=== PATIENT | female | born 1945 | race Caucasian/White ===

== ENCOUNTER → 2020-12-28 | Outpatient (CLI) | payer OTHER | LOC: SJCVC 13:37 | PROVIDERS: ATTEND Internal Medicine | DX: R94.31 Abnormal electrocardiogram [ECG] [EKG] (principal); R06.00 Dyspnea, unspecified; R93.1 Abnormal findings on diagnostic imaging of heart and coronary circulation; E78.5 Hyperlipidemia, unspecified; I12.9 Hypertensive chronic kidney disease with stage 1 through stage 4 chronic kidney disease, or unspecified chronic kidney disease; N18.31 Chronic kidney disease, stage 3a; K21.9 Gastro-esophageal reflux disease without esophagitis; Z88.8 Allergy status to other drugs, medicaments and biological substances; Z79.899 Other long term (current) drug therapy; Z87.891 Personal history of nicotine dependence; Z82.49 Family history of ischemic heart disease and other diseases of the circulatory system ==

== ENCOUNTER → 2021-01-23 | Outpatient (CLI) | payer OTHER | LOC: SJCVCIMAG 07:49 | PROVIDERS: ATTEND Internal Medicine | DX: I08.3 Combined rheumatic disorders of mitral, aortic and tricuspid valves (principal); I49.1 Atrial premature depolarization; R06.00 Dyspnea, unspecified; R93.1 Abnormal findings on diagnostic imaging of heart and coronary circulation; I12.9 Hypertensive chronic kidney disease with stage 1 through stage 4 chronic kidney disease, or unspecified chronic kidney disease; N18.31 Chronic kidney disease, stage 3a; E78.5 Hyperlipidemia, unspecified; K21.9 Gastro-esophageal reflux disease without esophagitis; Z98.890 Other specified postprocedural states; Z88.8 Allergy status to other drugs, medicaments and biological substances; Z79.899 Other long term (current) drug therapy; Z87.891 Personal history of nicotine dependence; Z82.49 Family history of ischemic heart disease and other diseases of the circulatory system ==

== ENCOUNTER → 2021-02-22 | Outpatient (CLI) | payer OTHER ==
--- NOTE | ~2021-02-22 | PFR/MVV ---
[facility] [place] [address] PULMONARY FUNCTION MVV/REPORT Name: CROWEDUARDO Room #: [facility]#: [id number] Admission: 02/22/21 Attend Phys: Charles Carpio MD Discharge: Date of : 45 Report #: [id number] THIS REPORT FOR: //name// >> SPIROMETRY: (BTPS) Height: in cm Weight: lbs kg Exam Date: PRE-RX POST-RX PRED BEST %PRED BEST %PRED %CHG FVC LITERS . . . . . . FEV1 LITERS . . . . . . FEV1/FVC % . . . . . . JDP62-06% L/Sec . . . . . . PEF L/SEC . . . . . . FEF50/FIF50 UNITLESS . . . . . . MVV L/Min . . . f 1/Min . . . >> LUNG VOLUMES: (BTPS) PRE-RX POST-RX PRED AVG %PRED AVG %PRED %CHG VC Liters . . . . . . TLC Liters . . . . . . RV Liters . . . . . . RV/TLC % . . . . . . FRC PL Liters . . . . . . FRC N2 Liters . . . . . . ERV Liters . . . . . . IC Liters . . . . . . >> DIFFUSION: DLCO ml/Min/mmHg . . . . . . DL Beau ml/Min/mmHg . . . . . . DLCO/VA ml/Min/mmHg . . . . . . VA Liters . . . . . . COMMENTS: COMMENTS: >> RESISTANCE: [facility] [address] [place] [address] PULMONARY FUNCTION MVV/REPORT Name: EDUARDO MARIA Room #: REG [facility]#: [id number] Admission: 02/22/21 Attend Phys: Charles Carpio MD Discharge: Date of : 45 Report #: [id number] PRE-RX PRED AVG %PRED Raw Total cmH20/L/Sec . . . Raw Insp cmH20/L/Sec . . . Raw Exp cmH20/L/Sec . . . Raw cmH20/L/Sec . . . Gaw L/Sec/cmH20 . . . sRaw cmH20 Sec . . . sGaw l/cmH20 Sec . . . Vtq Liters . . . # = OUTSIDE 95% CONFIDENCE INTERVAL CALIBRATION: PRED: 3.00 ACTUAL: EXP 3.01 INSP 3.02 [facility] N-[id number] >> INTERPRETATION/IMPRESSION: DOC #: [id number] Sam Sue M.D. PHYSICIAN: Dr. Charles Caprio. SPIROMETRY: FEV1 is 2.22 liters (112%), FVC is 2.75 liters (98%), FEV1/FVC ratio is 81%. There is no significant response to bronchodilator therapy. Total lung capacity is 5.57 liters (112%). RV is 2.16 liters (105%). Diffusing capacity is 52%. IMPRESSION: Pulmonary function studies are consistent with normal pulmonary function with no significant response to bronchodilator therapy. There is no significant air trapping or hyperinflation. Diffusing capacity is moderately decreased. Sam BHATIA/JADEN By: Sam Sue MD /nt
== END ==
LOC: NUC 07:46
PROVIDERS: ATTEND Internal Medicine
DX: R06.00 Dyspnea, unspecified (principal)

== ENCOUNTER → 2021-03-08 | Outpatient (CLI) | payer OTHER ==
[~2021-03-08] MED LIST: ATORVASTATIN CA20 MG PO; BUPROPION XL300 MG PO; CHLORTHALIDONE25 MG PO; DULOXETINE HCL60 MG PO; EXCEDRIN CAPLE1 EACH PO; FAMOTIDINE 20 M20 MG PO; FORTEO750 MCG/3 SUBQ; HYDROCODONE-ACE15 ML PO; IRON325 M1 PO; POTASSIUM20 PO
== END ==
LOC: LAB 12:04
PROVIDERS: ATTEND Student in an Organized Health Care Education/Training Program
DX: Z01.812 Encounter for preprocedural laboratory examination (principal); Z20.822 Contact with and (suspected) exposure to COVID-19

== ENCOUNTER 2021-03-09 06:33 | Observation (INO) | payer OTHER ==
[~2021-03-09] VITALS: Ht 167.6 cm; Wt 61.2 kg
[~2021-03-09 06:33] MED LIST changes: -HYDROCODONE-ACE15 ML PO; -IRON325 M1 PO; -POTASSIUM20 PO
[2021-03-09 07:05] VITALS: BP 142/70
[2021-03-09 07:47] LABS: HEMATOCRIT 32.8 % (37.0-47.0); HEMOGLOBIN 10.6 gm/dL (12.0-15.0)
[2021-03-09 07:52] LABS: CREATININE 1.5 mg/dL (0.6-1.0); POTASSIUM 3.1 mmol/L (3.5-5.1)
[2021-03-09 08:00] LABS: ALBUMIN 3.9 g/dL (3.4-5.0); TOTAL BILIRUBIN 0.3 mg/dL (0.2-1.0); TOTAL PROTEIN 7.4 g/dL (6.4-8.2)
--- NOTE | 2021-03-09 14:30 | NUR ---
Pt transferred to unit from PACU. Dressings c/d/i. Pain controlled with prn pain meds. IVF infusing. Family at bedside. Tolerates clear liquids well. Not to be advanced. No carbonated beverages. Family at bedside. Call light within reach. Will continue to monitor.
[2021-03-09 14:55] VITALS: BP 147/81
[2021-03-09 21:00] VITALS: BP 138/76
--- NOTE | 2021-03-10 04:00 | NUR ---
ALERT AND ORIENTED.S/P PARA ESOPHAGEAL HIATAL HERNIA REPAIR WITH MESH. LAP SITES X 5 WITH BANDAID LOOK OKAY. AFEBRILE. WALKS TO THE BATHROOM, VOIDING OKAY. PAIN MANAGED WITH LIQUID MORPHINE AND IV MORPHINE. TOLERATING CLR LIQUID DIET.
[2021-03-10 05:30] LABS: HEMATOCRIT 28.4 % (37.0-47.0); HEMOGLOBIN 9.4 gm/dL (12.0-15.0); MCH 28.8 pg (26.0-34.0); MCHC 33.1 g/dL (28.0-37.0); RBC 3.27 mil/uL (4.20-5.00); RDW 15.1 % (10.5-14.5); WBC 8.7 thou/uL (4.0-11.0)
[2021-03-10 06:12] LABS: POTASSIUM 4.6 mmol/L (3.5-5.1)
[2021-03-10 08:34] VITALS: BP 101/63
--- NOTE | 2021-03-10 10:17 | O ---
[facility] [place] [address] OPERATIVE REPORT Name: EDUARDO MARIA Room #: 444-P ADM IN M.R.#: [id number] Admission: 03/09/21 Attend Phys: Wilbur Serrano MD Discharge: Date of : 45 Report #: [id number] THIS REPORT FOR: cc: Charles Carpio MD,Wilbur Ledbetter MD, MD ~ DOC #: [id number] cc: MD Wilbur Goldsmith MD PREOPERATIVE DIAGNOSIS: Paraesophageal hiatal hernia. POSTOPERATIVE DIAGNOSIS: Paraesophageal hiatal hernia. PROCEDURES PERFORMED: Laparoscopic repair of paraesophageal hiatal hernia, placement of reinforcement mesh ([place] Enform), Rick fundoplication. SURGEON: Wilbur Serrano MD ANESTHESIA: General. COMPLICATIONS: None. ESTIMATED BLOOD LOSS: 5 mL. DESCRIPTION OF PROCEDURE: With the patient under general anesthesia, IV antibiotic was administered. The patient was placed in low lithotomy position with a beanbag. The timeout was performed. The abdomen was prepped and draped in sterile fashion. 0.25% Marcaine was used to anesthetize the skin down 2 inches above the umbilicus. Fascia was identified. The midline fascia was opened under visualization between clamps. 0 Vicryl sutures were placed on the fascial edges for retraction. A Veress needle was then placed through the peritoneum. Abdominal cavity was insufflated with CO2. Pneumoperitoneum was established without difficulty. After creating pneumoperitoneum, an 11 mm trocar was placed under visualization into the peritoneal cavity. A 5 mm trocar was placed in the right upper quadrant, 5 mm trocar was placed in the left epigastrium, 5 mm trocar was placed in the left upper quadrant midclavicular line and then 11 mm trocar was placed to the left upper quadrant midclavicular line, 5 mm trocar was placed in the left upper quadrant at the anterior axillary line. Liver retractor was placed. This was held with the retracting device. The left lobe of the liver was lifted anteriorly. Paraesophageal hiatal hernia was identified. Proximally, the upper third of the stomach was in the hernia. Ligaments between the stomach and the liver were dissected free. This was then taken to the right crura of the diaphragm. There was some herniated fat that was medial to the GE junction that stuck up in the chest. At [address] [address] OPERATIVE REPORT Name: EDUARDO MARIA Room #: 444-P ADM IN M.R.#: [id number] Admission: 03/09/21 Attend Phys: Wilbur Serrano MD Discharge: Date of : 45 Report #: [id number] position, the peritoneum was dissected free. The hernia sac was then dissected out of the mediastinum without difficulty. The course of the right crura was completely freed. The hernia sac was completely reduced. Dissection was then carried out at the gastrocolic ligament, getting into the lesser sac, freeing the short gastric and short gastric was then divided with Harmonic scalpel. Harmonic scalpel was used for the dissection described above. The left crura of the diaphragm was then isolated. Excess hernia sac was then freed from the stomach. A 50-Amharic bougie was placed without difficulty. The diaphragmatic defect was closed with 0 silk suture using pledgets. Three separate sutures were used. This was placed with a sizer and the repair was loose around the dilator. The diaphragm edges actually were fairly decent and came together pretty easily. A 10 x 10 cm [place] Enform mesh was used. This was a soft material. This was moistened and then trimmed to fit and then placed in the abdominal cavity. This was placed over the diaphragmatic repair and U shape was cut out of it to go around the right and left side of the GE junction. The esophagus was dissected free in the mediastinum. I could see the left pleura was open. I did not see any gaps in the right pleura. The esophagus was not harmed. The loose tissue surrounding the esophagus was free. The esophagus came down easily and the GE junction was about 5 cm below the diaphragmatic crura. The mesh was sutured with 2-0 [place]-Aakash suture, laparoscopic intracorporeal knot tying was performed. After the hiatal hernia was repaired, a Rick fundoplication was performed. The posterior fundus was brought behind the GE junction. A 0 silk suture was placed on the gastric wall. This allowed the stomach to be pulled through. An anterior part of the fundus was then sewn to this. A 360-degree wrap was performed. During the sizing of the wrap, the dilator was passed down again. The two separate sutures were placed for the fundoplication. This was using 0 silk suture. Again, pledgets were used. The diaphragmatic abraham was also closed with 0 silk suture with pledgets in the above section. Once there was enough room under the wrap, when the dilator was removed, the wrap was formed without any tension. There was essentially no bleeding during the procedure. Valsalva was performed to get the air out of the chest as I was releasing the intra-abdominal air. We will be doing a chest x-ray since the pleura was entered on the left. The fascial defect above the umbilicus was closed with 0 Vicryl x2. Skin was irrigated. Skin was closed with 5-0 PDS. Dermabond and Band-Aid was applied. The patient was awakened. Neal catheter was removed. She was taken to recovery room, tolerated the procedure well. Wilbur Serrano MD PYC/NEFTALI/IRASEMA [address] [place] [address] OPERATIVE REPORT Name: EDUARDO MARIA Room #: 444-P [facility] IN .R.#: [id number] Admission: 03/09/21 Attend Phys: Wilbur Serrano MD Discharge: Date of : 45 Report #: [id number] <ELECTRONICALLY SIGNED> By: Wilbur Serrano MD 03/10/21 1017 30 2109 Wilbur Serrano MD /nt
--- NOTE | 2021-03-10 12:34 | NUR ---
ASSESSMENT: CM REVIEWED CHART AND SPOKE WITH PATIENT AT THE BEDSIDE. PT IS ALERT AND ORIENTED X4. PT IS S/P LAP HERNIA REPAIR. PT REPORTS LIVING IN A CONDO ALONE. PT REPORTS HAVING NO STEPS SHE HAS TO USE. PT REPORTS AMBULATING WITH A WALKER AND HAS A GRAB BAR IN THE SHOWER. PT REPORTS BEING INDEPENDENT WITH ADLS. PT STATES HER SON AND DAUGHTER LIVE IN TOWN AND ARE SUPPORTIVE. PT REPORTS SHE HAS [facility] IN [facility] AND HAD HH BUT UNSURE THE HH AGENCY. CM DISCUSSED ROLE AND PT DOES NOT ANTICIPATE HAVING ANY NEEDS FROM CM PRIOR TO DISCHARGE. ANTICIPATE DISCHARGE HOME WITH NO NEEDS.
[2021-03-10] MEDS ORDERED: HYDROCODONE-ACE15 ML PO (12:57)
[2021-03-10] MEDS ORDERED: POTASSIUM20 PO (12:58)
[2021-03-10] MEDS ORDERED: IRON325 M1 PO (12:59)
[2021-03-10 14:48] VITALS: BP 101/63
--- NOTE | 2021-03-10 15:15 | NUR ---
ASSUMED PT CARE AROUND 0720. PT ALERT X ORIENTED X 4. ON ROOM AIR. FALL PRECAUTION IN PLACE. WILL CALL APPROPRIATELI. SATAND BY ASST. IV LEFT HAND AND RIGHT HAND. NO EDEMA GOOD PULSES. ON CLEAR LIQUID DIET. 5 LAP SITES ON THE ABDOMEN. PT GETTING DISCHARGED TO HOME.
--- NOTE | 2021-03-14 13:13 | PATH ---
[facility] [address] [place] [address] PATHOLOGY RPT PROCEDURE Name: VERONICA FLORENCE Room #: 444-P TASHA Montelongo#: [id number] Admission: 03/09/21 Date of : 45 Discharge: 03/10/21 Report #: [id number] Path Case #: [id number] [facility] Accession Number: [id number] . 01 Material submitted: . PARAESOPHAGEAL - PARAESOPHAGEAL HERNIAL SAC . 01 Clinician provided ICD-10: K44.9 . 01 Clinical history: . LAPAROSCOPIC PARAESOPHAGEAL HERNIA PARAESOPHAGEAL HIATAL HERNIA LAP HERNIA REPAIR,[id number] . 02 Diagnosis: Paraesophageal hernia sac, repair: - Fragments of congested fibroadipose and fibrovascular connective tissue along with abundant reactive lymph nodes (6). (IUV:pit; 03/13/2021) QTP 03/13/2021 1756 Local . 02 Electronically signed: . Chantale Kurtz MD, Pathologist NPI- [id number] . 01 Gross description: . Received in formalin labeled "Veronica Florence, periesophageal hernia sac" is an irregular, mliler-pink to miller-yellow portion of membranous soft tissue measuring 4.6 x 1.9 x 1.2 cm. Specimen is serially sectioned to reveal lobular, miller-yellow cut surface. Cement Cutter sections of the specimen are submitted in cassette A1.([facility]; 03/12/2021) GZA/GZA 03/12/2021 1116 Local . 02 Pathologist provided ICD-10: K44.9 . 02 CPT . 569062 Specimen Comment: A courtesy copy of this report has been sent to [phone] Specimen Comment: [id number] Specimen Comment: Report sent to / DR SALGADO Performed at: [address], [place] [id number] MD Franky Oreilly MD Phone: [phone] [facility] [address] [place] [address] PATHOLOGY RPT PROCEDURE Name: VERONICA FLORENCE Room #: 444-P [facility] M.R.#: [id number] Admission: 03/09/21 Date of : 45 Discharge: 03/10/21 Report #: [id number] Path Case #: [id number] Performed at: [address] [id number] MD Chantale [place]z MD Phone: [phone]
== END 2021-03-10 15:10 | disposition home or self-care (01) ==
LOC: OR → TBA 06:37 → OR 08:53 → 4S 11:59 → TBA 11:59 → OR 12:45 → 4S 13:51 → OR 03-10 09:01 → 4S 03-10 15:10 → OR 03-10 15:48
PROVIDERS: ADMIT Surgery; ATTEND Surgery
DX: K44.9 Diaphragmatic hernia without obstruction or gangrene (principal); I10 Essential (primary) hypertension; E78.5 Hyperlipidemia, unspecified; Z87.891 Personal history of nicotine dependence; Z79.899 Other long term (current) drug therapy
CPT/HCPCS: 10102; 50010; 50101; 50411; 50455; 50555; 50886; 51436; 51474; 51489; 52182; 52265; 53307; 53310; 53335; 54022; 54118; 56462; 56524; 56525; 56526; 56528; 56530; 58574; 62110; 62900; 70005

== ENCOUNTER 2021-04-01 01:24 | Emergency (ER) | payer OTHER ==
[~2021-04-01] VITALS: Ht 160 cm; Wt 68.0 kg
[~2021-04-01 01:24] MED LIST changes: +HYDROCODONE-ACE15 ML PO; +IRON325 M1 PO; +POTASSIUM20 PO
[2021-04-01 02:09] LABS: URINE BILIRUBIN NEGATIVE (Negative); URINE BLOOD TRACE (Negative); URINE CLARITY CLEAR; URINE COLOR YELLOW; URINE GLUCOSE-RANDOM* NEGATIVE (Negative); URINE KETONES NEGATIVE (Negative); URINE LEUKOCYTES-REFLEX NEGATIVE (Negative); URINE NITRITE-REFLEX NEGATIVE (Negative); URINE PROTEIN (DIPSTICK) NEGATIVE (Negative); URINE SPECIFIC GRAVITY 1.015 (1.005-1.035); URINE UROBILINOGEN 0.2 E.U./dl (0.2-1.0)
[2021-04-01 02:11] LABS: ABSOLUTE NEUTROPHILS 8.7 thou/uL (1.4-8.2); EOSINOPHILS 5.3 % (0.0-3.0); HEMATOCRIT 33.2 % (37.0-47.0); HEMOGLOBIN 10.7 gm/dL (12.0-15.0); LYMPHOCYTES 16.2 % (24.0-44.0); MCH 28.2 pg (26.0-34.0); MCHC 32.3 g/dL (28.0-37.0); MCV 87.1 fL (80.0-100.0); MONOCYTES 7.3 % (1.0-8.0); PLATELET COUNT 566 thou/uL (150-400); POLYS 70.2 % (36.0-66.0); RBC 3.82 mil/uL (4.20-5.00); RDW 15.7 % (10.5-14.5); WBC 12.4 thou/uL (4.0-11.0)
[2021-04-01 02:18] LABS: CREATININE 1.4 mg/dL (0.6-1.0); POTASSIUM 3.3 mmol/L (3.5-5.1)
[2021-04-01 02:24] LABS: TOTAL BILIRUBIN 0.3 mg/dL (0.2-1.0); TOTAL PROTEIN 7.5 g/dL (6.4-8.2)
[2021-04-01] MEDS ORDERED: ZOFRAN ODT4 MG PO (05:05)
[2021-04-01 05:07] VITALS: BP 140/67
== END 2021-04-01 05:20 | disposition home or self-care (01) ==
LOC: ER 01:24
PROVIDERS: Emergency Medicine
DX: K52.9 Noninfective gastroenteritis and colitis, unspecified (principal); R10.9 Unspecified abdominal pain; I12.9 Hypertensive chronic kidney disease with stage 1 through stage 4 chronic kidney disease, or unspecified chronic kidney disease; N18.9 Chronic kidney disease, unspecified; K21.9 Gastro-esophageal reflux disease without esophagitis; Z88.1 Allergy status to other antibiotic agents; Z85.828 Personal history of other malignant neoplasm of skin

== ENCOUNTER → 2021-04-06 | Outpatient (CLI) | payer OTHER ==
[~2021-04-06] MED LIST changes: +HYDROCODON-ACE1 EAC7 PO; +K-TAB ER20 MEQ PO; +ZOFRAN ODT4 MG PO
== END ==
LOC: ULTRA 11:39
PROVIDERS: ATTEND Surgery
DX: K76.89 Other specified diseases of liver (principal); K83.8 Other specified diseases of biliary tract; R10.11 Right upper quadrant pain

== ENCOUNTER → 2021-04-07 | Day surgery (SDC) | payer OTHER ==
[~2021-04-07] VITALS: Ht 167.6 cm; Wt 62.6 kg
[2021-04-07 12:34] VITALS: BP 115/57
[2021-04-07 12:37] LABS: CALCIUM 8.8 mg/dL (8.5-10.1); CREATININE 1.5 mg/dL (0.6-1.0); POTASSIUM 3.7 mmol/L (3.5-5.1)
[2021-04-07 12:43] LABS: ALBUMIN 3.8 g/dL (3.4-5.0); TOTAL BILIRUBIN 0.3 mg/dL (0.2-1.0); TOTAL PROTEIN 7.1 g/dL (6.4-8.2)
[2021-04-07 14:51] VITALS: BP 115/57
--- NOTE | 2021-04-11 14:06 | O ---
[facility] [place] [address] OPERATIVE REPORT Name: EDUARDO MARIA Room #: REG [facility]#: [id number] Admission: 04/07/21 Attend Phys: Wilbur Serrano MD Discharge: Date of : 45 Report #: [id number] THIS REPORT FOR: cc: Charles Carpio MD, Christopher B. MD Chu, Peter Y. MD ~ DOC #: [id number] cc: MD Wilbur Goldsmith MD DATE OF SERVICE: 04/07/2021 PREOPERATIVE DIAGNOSIS: Incarcerated right femoral hernia. POSTOPERATIVE DIAGNOSIS: Incarcerated right femoral hernia with inflammation and free fluid. PROCEDURE PERFORMED: Laparoscopic properitoneal repair of incarcerated femoral hernia with mesh. ANESTHESIA: General. SURGEON: Wilbur Serrano MD COMPLICATIONS: None. ESTIMATED BLOOD LOSS: 5 mL DESCRIPTION OF PROCEDURE: With the patient under general anesthesia, Neal catheter was placed. IV antibiotic was administered. Timeout was performed. 0.25% Marcaine was used to anesthetize the skin adjacent to the umbilicus on the right side. A small 2 cm incision was made adjacent to the umbilicus. The fascia was identified. The fascia was opened transversely. The muscle was spread with hemostat. The muscle and the posterior fascia were bluntly with finger. A balloon trocar was placed through the space. Insufflation was performed with CO2. A 5 mm trocar was placed about 2 inches below the umbilicus and properitoneal space was opened up. Inferior epigastric vessel on the right was identified. The round ligament was identified, seen going into the internal ring, no indirect hernia sac. A second 5 mm trocar was placed lateral to the internal ring in the wall. The patient had an obvious femoral hernia that was easily seen. There is fatty tissue within the hernia, possibly a peritoneal sac posteriorly. The fat was dissected and was able to be pulled out of the internal ring. There was free fluid once I pulled this fat out and this is likely free fluid. I do not think it was in the sac. This then confirms the ultrasound finding with fluid in this lump of fat going into it. The ring of the femoral hernia was identified. The fascia defect was seen. [address] [address] OPERATIVE REPORT Name: EDUARDO MARIA Room #: REG [facility] M.R.#: [id number] Admission: 04/07/21 Attend Phys: Wilbur Serrano MD Discharge: Date of : 45 Report #: [id number] Nothing else was in it. The dissection was carried freeing the properitoneal space rest of the way. A large right-sided 3DMax lightweight mesh was placed. This was placed through an 11 mm trocar over the properitoneal space. This covered the pubic bone across the midline. This also covered the internal ring well. I did divide the round ligament, so there is nothing else going into the internal ring. The mesh was tacked laterally with SorbaFix. The mesh was tacked superomedially with SorbaFix over the Félix's ligament; and superomedially, the mesh was tacked to the rectus muscle. The mesh seated well. The femoral hernia was covered well. CO2 was evacuated, trocars were removed. Fascial defect adjacent to the umbilicus was closed with [id number] 0 Vicryl x2. Skin was irrigated. The skin was then closed with 5-0 PDS in subcuticular fashion. Steri-Strip, Band-Aids applied. The patient tolerated the procedure well. Wilbur Serrano MD PYC/VIS <ELECTRONICALLY SIGNED> By: Wilbur Serrano MD 04/11/21 1406 1356 1500 Wilbur Serrano MD /nt
== END | disposition home or self-care (01) ==
LOC: OR 11:32
PROVIDERS: ATTEND Surgery
DX: K41.30 Unilateral femoral hernia, with obstruction, without gangrene, not specified as recurrent (principal); I12.9 Hypertensive chronic kidney disease with stage 1 through stage 4 chronic kidney disease, or unspecified chronic kidney disease; N18.9 Chronic kidney disease, unspecified; E78.00 Pure hypercholesterolemia, unspecified; F32.9 Major depressive disorder, single episode, unspecified; F41.9 Anxiety disorder, unspecified; K21.9 Gastro-esophageal reflux disease without esophagitis; M81.0 Age-related osteoporosis without current pathological fracture; Z98.890 Other specified postprocedural states; Z79.899 Other long term (current) drug therapy; Z87.891 Personal history of nicotine dependence; Z85.828 Personal history of other malignant neoplasm of skin; Z96.641 Presence of right artificial hip joint; Z96.652 Presence of left artificial knee joint; Z90.710 Acquired absence of both cervix and uterus
CPT/HCPCS: 50010; 50101; 50411; 50507; 50555; 50848; 52265; 53065; 53307; 56525; 56526; 58574; 62110; 62900; 70005

== ENCOUNTER 2021-04-29 09:31 | Inpatient (IN) | payer OTHER ==
[~2021-04-29] VITALS: Ht 167.6 cm; Wt 61.2 kg
--- NOTE | ~2021-04-29 | EMS ---
[address] [address] EMS Patient Care Report Name: EDUARDO MARIA Room #: 170-2 ADM IN M.R.#: [id number] Admission: 04/29/21 Attend Phys: Wilbur Serrano MD Discharge: Date of : 45 Report #: [id number] THIS REPORT FOR: //name// Report Transmitted: 04/29/2021 13:26 EMS Care Summary [facility] MED-ACT Incident [id number] @ 04/29/2021 09:04 Incident Location [id number] [place] [address] Patient EDUARDO MARIA Female, 75 Years 1945 Patient Address [address] [place] [address] Patient History Hypertension (HTN),Hyperlipidemia,Gastro-Esophageal Reflux Disease (GERD), Patient Allergies Tetracycline, Patient Medications Hydrochlorothiazide (Hctz), Duloxetine, Famotidine, Bupropion, Chlorthalidone, Chief Complaint Abdominal Pain Disposition Transported No Lights/[place] Dispatch Reason Abdominal Pain/Problems Transported To [facility] Narrative [id number] found the pt sitting on the side of her bed in no apparent distress, putting on a shirt. The pt stated that she has been having abdominal pain [address] [address] EMS Patient Care Report Name: EDUARDO MARIA Room #: 170-2 ADM IN [facility].#: [id number] Admission: 04/29/21 Attend Phys: Wilbur Serrano MD Discharge: Date of : 45 Report #: [id number] since around 00:00 this morning. She stated that her pain has just gotten progressively worse this morning and now wants to go to the ED for evaluation. The pt stated that she went to the hospital last Saturday for a similar incident and was told she had gastritis. The pt has a follow up appointment with her primary care doctor in a couple of days. The pt stated that she just has never been this sick before. She stated that her abdomen just feels like a constant pressure all over her abdomen. The pt stated that she has been nauseous and had some diarrhea. The pt denies any chest pain, shortness of breath, headaches, blurred vision, or recent trauma. The pt was transported in a position of comfort. The pt stated that hopefully they will do some "more digging" and find out what is wrong with her. The pt has no new complaints en route and with hand off to [place] ED RN. The pt was transferred to ED room 1 via a sheet drag from EMS cot to ED bed. Initial Vitals @09:24P: 91,R: 14,BP: 117/72,SpO2: 99, @09:12P: 100,R: 14,BP: 147/98,Pain: 2/10,GCS: 15,Temp: 98F,SpO2: 98,Revised Trauma: 12, Assessments @09:11MENTAL:Person Oriented,Time Oriented,Place Oriented,Event Oriented,SKIN:HEENT:Head/Face: No Abnormalities,Eyes: No Abnormalities,Neck/Airway: No Abnormalities,LUNG SOUNDS:General: Diarrhea,Left Upper: Tenderness,Right Upper: Tenderness,Left Lower: Tenderness,Right Lower: Tenderness,ABDOMEN:General: Diarrhea,Left Upper: Tenderness,Right Upper: Tenderness,Left Lower: Tenderness,Right Lower: Tenderness,PELVIS//GI:No Abnormalities,EXTREMITIES:Left Arm: No Abnormalities,Right Arm: No Abnormalities,Left Leg: No Abnormalities,Right Leg: No Abnormalities,PULSE:Radial: 2+ Normal,NEURO:No Abnormalities, Impression Abdominal Pain Procedures @09:11ALS AssessmentResponse: UnchangedSucceeded@09:11Surgical Mask on PatientResponse: Unchanged Timeline 09:02,Call Received 09:02,Psap Call 09:04,Dispatched 09:04,En Route 09:08,On Scene 09:10,At Patient 09:11,ALS Assessment,Response: UnchangedSucceeded, [place] [address] EMS Patient Care Report Name: EDUARDO MARIA Room #: 170-2 ADM IN M.R.#: [id number] Admission: 04/29/21 Attend Phys: Wilbur Serrano MD Discharge: Date of : 45 Report #: [id number] 09:11,Surgical Mask on Patient,Response: Unchanged 09:12,BP: 147/98 M,PULSE: 100,RR: 14 R,SPO2: 98 Ox,ETCO2: ,BG: ,PAIN: 2,GCS: 15, 09:16,Depart Scene 09:24,BP: 117/72 M,PULSE: 91,RR: 14 R,SPO2: 99 Ox,ETCO2: ,BG: ,PAIN: ,GCS: , 09:28,At Destination 09:40,Call Closed Disclaimer v1.1 Copyright 2020 [employer] This EMS Care Summary contains data elements from the applicable legal record (which may be displayed differently). It is designed to provide pertinent information for the following purposes: continuity of care, clinical quality, and state data reporting. The complete legal record is available to ED staff and administrators of the receiving hospital in [employer]'s Patient Tracker. All data is provided "as is."
[2021-04-29 09:33] VITALS: BP 143/60
[2021-04-29 09:52] LABS: ABSOLUTE NEUTROPHILS 13.4 thou/uL (1.4-8.2); BASOPHILS 0.5 % (0.0-2.0); EOSINOPHILS 0.1 % (0.0-3.0); HEMATOCRIT 37.8 % (37.0-47.0); HEMOGLOBIN 12.6 gm/dL (12.0-15.0); LYMPHOCYTES 8.1 % (24.0-44.0); MCHC 33.4 g/dL (28.0-37.0); MCV 86.6 fL (80.0-100.0); MONOCYTES 2.4 % (1.0-8.0); PLATELET COUNT 500 thou/uL (150-400); POLYS 88.9 % (36.0-66.0); RBC 4.36 mil/uL (4.20-5.00); RDW 16.3 % (10.5-14.5)
[2021-04-29 10:01] LABS: CALCIUM 9.9 mg/dL (8.5-10.1); CREATININE 2.1 mg/dL (0.6-1.0); POTASSIUM 3.6 mmol/L (3.5-5.1)
[2021-04-29 10:07] LABS: ALBUMIN 4.7 g/dL (3.4-5.0); TOTAL BILIRUBIN 0.4 mg/dL (0.2-1.0); TOTAL PROTEIN 8.4 g/dL (6.4-8.2)
[2021-04-29 14:29] VITALS: BP 175/82
[2021-04-29 14:55] VITALS: BP 137/69
--- NOTE | 2021-04-29 16:42 | NUR ---
ASSUMED PT CARE UPON ADMISSION TO UNIT AROUND 1455. PATIENT IS A&OX4 AND ABLE TO MAKE NEEDS KNOWN. IV PATENT, FLUIDS INFUSING. PATIENT REMAINS CONTINENT, UP TO BEDSIDE COMMODE WITH STANDBY ASSIST. PATIENT HAS AN NG TUBE TO THE RIGHT NARE HOOKED UP TO LOW INTERMITTENT SUCTIONS DRAINING LIGHT GREEN DRAINAGE. PATIENT ON 2 LITERS OXYGEN VIA NC. FALL PRECAUTIONS ARE IN PLACE, CALL LIGHT WITHIN REACH.
[2021-04-29 20:00] VITALS: BP 140/94
[2021-04-29 20:09] VITALS: BP 140/94
--- NOTE | 2021-04-29 21:21 | NUR ---
REPORT TO MICHELLE GUADALUPE, FROM 4S . PT TRANSFERRED TO ROOM 439 VIA BED ALL BELONGINGS WITH.
--- NOTE | 2021-04-29 21:24 | NUR ---
TRANSFERRED TO UNIT AT APPROXIMATELY 2114. PT IS A/O X4 AND IS ON 2 LITERS O2 NC. VSS. AFEBRILE. C/O NAUSEA AND PAIN TO ABDOMEN. PRN PAIN AND NAUSEA MEDICATION GIVEN DIRECTED. NG TUBE REMAINS IN PLACED AND HOOKED UP TO INTERMITTENT SUCTION. AT THIS TIME PT IS LYING WITH HOB ELEVATED. WITH COLD WET WASH CLOTH ON HER FOREHEAD WITH EYES CLOSED. FALL PRECAUTIONS IN PLACE, CALL LIGHT IS WITHIN REACH. WILL CONTINUE TO MONITOR.
[2021-04-30 06:02] LABS: BASOPHILS 0.5 % (0.0-2.0); EOSINOPHILS 0.1 % (0.0-3.0); HEMATOCRIT 40.2 % (37.0-47.0); HEMOGLOBIN 12.8 gm/dL (12.0-15.0); LYMPHOCYTES 9.3 % (24.0-44.0); MCH 28.5 pg (26.0-34.0); MCHC 31.9 g/dL (28.0-37.0); MCV 89.3 fL (80.0-100.0); MONOCYTES 12.8 % (1.0-8.0); PLATELET COUNT 549 thou/uL (150-400); POLYS 77.3 % (36.0-66.0); RDW 16.5 % (10.5-14.5); WBC 5.2 thou/uL (4.0-11.0)
[2021-04-30 06:30] LABS: ALBUMIN 3.5 g/dL (3.4-5.0); CREATININE 1.6 mg/dL (0.6-1.0); POTASSIUM 4.2 mmol/L (3.5-5.1); TOTAL BILIRUBIN 0.3 mg/dL (0.2-1.0); TOTAL PROTEIN 6.9 g/dL (6.4-8.2)
[2021-04-30 06:36] LABS: CALCIUM 7.6 mg/dL (8.5-10.1)
[2021-04-30 07:52] VITALS: BP 144/73
--- NOTE | 2021-04-30 09:42 | NUR ---
Assumed care of pt at 0700. Pt a&ox4. Bowel sounds absent in am. NG tube in place to low intermittent suction. Abd pain controlled with prn pain meds. Pt awaiting to see surgeon today and find out the plan. Call light within reach. Fall precautions in place. Will continue to monitor.
--- NOTE | 2021-04-30 10:31 | EKG ---
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
[2021-04-30 16:16] VITALS: BP 117/59
[2021-04-30 16:48] VITALS: BP 112/56
[2021-04-30 20:37] VITALS: BP 128/68
--- NOTE | 2021-05-01 01:31 | NUR ---
PT IS A/O X4 AND IS UP WITH ASSISTANCE. BEDREST FOLLOWING PROCEDURE WITH GAGNON IN PLACE DRAINING LIGHT YELLOW URINE. PT DENIES C/O PAIN OR DISCOMFORT. VSS AFEBRILE. NO BM THIS SHIFT. DRSG REMAINS C/D/I.NG TUBE REMAINS IN PLACE AND CONNECTED TO INTERMITTENT SUCTION. FALL PRECAUTIONS IN PLACE, CALL LIGHT IS WITHIN REACH. PT CALLS OUT APPROPRIATELY. WILL CONTINUE TO MONITOR.
[2021-05-01 03:09] VITALS: BP 89/51
[2021-05-01 05:27] LABS: HEMATOCRIT 31.6 % (37.0-47.0); MCHC 32.5 g/dL (28.0-37.0); MCV 89.3 fL (80.0-100.0); RBC 3.54 mil/uL (4.20-5.00); RDW 16.7 % (10.5-14.5); WBC 5.7 thou/uL (4.0-11.0)
[2021-05-01 05:28] LABS: HEMOGLOBIN 10.3 gm/dL (12.0-15.0)
[2021-05-01 05:47] LABS: ALBUMIN 2.1 g/dL (3.4-5.0); CALCIUM 7.2 mg/dL (8.5-10.1); POTASSIUM 4.6 mmol/L (3.5-5.1); TOTAL BILIRUBIN 0.3 mg/dL (0.2-1.0); TOTAL PROTEIN 5.1 g/dL (6.4-8.2)
[2021-05-01 05:50] LABS: CREATININE 2.7 mg/dL (0.6-1.0)
[2021-05-01 06:47] VITALS: BP 99/50
[2021-05-01 07:10] VITALS: BP 92/51
--- NOTE | 2021-05-01 09:31 | NUR ---
Assumed care of pt at 0700. Pt has some confusion this am. Cretinine 2.7, BUN 54. Pt pulled IV overnight. New IV insterted. Provider notified about pt's status. Nephrology and hospital doctor are consulted. Fluid bolus infusing. Dressing c/d/i. Talked to pt's family over the phone and updated on pt's status. Fall precautions in place. Will continue to monitor.
--- NOTE | 2021-05-01 09:43 | NUR ---
ASSESSMENT: CM REVIEWED CHART AND MET WITH PATIENT AT THE BEDSIDE. PT APPEARS TO BE ALERT AND ORIENTED X4. PT IS S/P EX LAP RELEASE OF INTERNAL HERNIA AND SB RESECTION. PT CURRENTLY HAS IN AN NG. PT REPORTS SHE LIVES AT HOME ALONE IN A CONDO. PT HAS NO STEPS TO ENTER THE CONDO OR ONCE INSIDE. PT REPORTS SHE HAS A WALKER AT HOME TO ASSIST WITH AMBULATION AND ALSO HAS A GRAB BAR IN THE SHOWER. PT REPORTS THAT SHE HAD HH IN THE PAST AFTER A HIP SURGERY BUT IS UNSURE THE AGENCY. PT DENIES HAVING A POST ACUTE CARE STAY. CM DISCUSSED ROLE. PT IS HOPEFUL SHE WILL PROGRESS AND HAVE NO NEEDS. PT DOES NOT FEEL SHE WILL LIKELY NEED HH. CM WILL CONTINUE TO FOLLOW TO ASSIST NEEDED.
--- NOTE | 2021-05-01 10:05 | EKG ---
[address] [employer] 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
--- NOTE | 2021-05-01 10:28 | O ---
[facility] [place] [address] [place] [address] OPERATIVE REPORT Name: EDUARDO MARIA Room #: 439-P ADM IN M.R.#: [id number] Admission: 04/29/21 Attend Phys: Wilbur Serrano MD Discharge: Date of : 45 Report #: [id number] THIS REPORT FOR: cc: Charles Carpio MD,Charles Serrano,Wilbur Palacios MD ~ cc: Arvind Carpio MD DATE OF SERVICE: 04/30/2021 PREOPERATIVE DIAGNOSIS: Small bowel obstruction with tender abdomen. POSTOPERATIVE DIAGNOSES: Small bowel obstruction with small bowel ischemia requiring resection, internal hernia secondary to small bowel adhesion to the left infundibulopelvic ligament, status post hysterectomy. SURGEON: Wilbur Serrano MD ANESTHESIA: General anesthesia. PROCEDURES PERFORMED: Diagnostic laparoscopy converted to exploratory laparotomy with release of internal hernia, lysis of adhesions and small bowel resection. COMPLICATIONS: None. ESTIMATED BLOOD LOSS: 30 mL. DESCRIPTION OF PROCEDURE: With the patient under general anesthesia, timeout was performed. Laparoscopic evaluation was performed to see if this bowel obstruction can be resolved with laparoscopic surgery. Time out was performed. The 0.25% Marcaine was used to anesthetize the skin. A supraumbilical incision was made. Fascia was opened in the midline after grasped with hemostat. 0 Vicryl suture placed on the fascial edges. Veress needle was then placed through peritoneum. Abdominal cavity was insufflated with CO2. An 11 mm trocar was placed under visualization into the pneumoperitoneum. Small bowel was markedly distended and occupying much of the space. The patient was placed in the Trendelenburg position. Two 5 mm trocars placed in the lateral abdomen, slightly above the umbilicus; one on the left side and one on the right side. There was a fair amount of fluid over the liver. This was suctioned out. It contained mild bloody serosanguineous fluid. Small bowel was evaluated. The small bowel was bruised appearing and the bowel that was in the loop that is deeper appeared more dusky. The bowel does appear to be caught by adhesions and internal hernia. During the manipulation of the small bowel that was dusky appearance, the bowel tore. Small bowel content came out. The laparoscopic surgery was terminated and the lower midline incision was made. Skin incision [address] [address] OPERATIVE REPORT Name: EDUARDO MARIA Room #: 439-P ADM IN M.R.#: [id number] Admission: 04/29/21 Attend Phys: Wilbur Serrano MD Discharge: Date of : 45 Report #: [id number] was made sharply. The subcutaneous was ____ with cautery. The fascia was opened in the midline. The peritoneum was opened up. A pull-tip sucker was placed. I can feel where the adhesion and the internal hernia was located in the left lower quadrant area. There was a band of adhesion, which was about 2.5 cm in width. There was bowel that was trapped underneath this adhesion band. The band was isolated, divided sharply. The bowel was then released, the ruptured small bowel side was identified and the leakage was controlled with [place]. Just distal to this, the small bowel was quite tightly adhesed to each other and that was more of a chronic adhesion. This part of the bowel did appear dusky. Irrigation was performed. Moist towels were placed in the pelvis to remove some of the more solid material which are vegetable matter, possibly partly digested corn. The small bowel resection was felt to be required. I decided to remove the bowel with perforation, also removed the fairly tight adhesion of the small bowel. Thus normal, more healthy bowel was reached on both ends and approximately 3.5 feet was removed. The small bowel was examined, after dividing it, the patient appears to have about 8 feet of bowel left. Small bowel followed distally to the terminal ileum and ileocecal valve. On this side, there was also adhesion of the small bowel to the right infundibulopelvic ligament and these adhesions were loosened to allow the small bowel to come in the colon, more or less in straight fashion. The proximal small bowel was followed to the ligament of Treitz. The colon was unremarkable. The NG tube was repositioned so it was not looped. The small bowel was divided with the JOSE. The mesentery was scored. The mesentery was divided between clamps and 2-0 Vicryl tie was used to tie under the clamp, tying off the mesentery. Small bowel specimen was handed off. A chur-ci-vdkr functional end-to-end anastomosis was performed using a JOSE. An Allis clamp was placed on the corner of both staple lines. The proximal staple line was opened. There was release of air. This was not quite as dilated. A small piece of the JOSE was placed in that. Allis was used to hold the bowel. The corner of the distal staple line in the antimesenteric corner of the staple line distally was then trimmed off, and a pull-tip sucker was placed in the bowel to decompress the bowel. Then, the larger part of the JOSE was placed into that, the bowel was lined up together, and the JOSE was deployed. Staple line was intact and no bleeding. The enterotomy was then brought together and then stapled with a TA 60. A crotch of the anastomosis was then reinforced with 3-0 Vicryl suture x2. The mesentery of the small bowel was then brought back together with 3-0 Vicryl in a running fashion. The copious irrigation was then performed removing the remaining pieces of the vegetable matter. Multiple ____ was used. The anastomosis was tested and noted to be patent. Small bowel content was able to be expressed from the proximal bowel through the anastomosis and then through the distal anastomosis to the terminal ileum and colon. After irrigation, the small bowel was then returned to the abdominal cavity in an grip boss fashion. The omentum was placed over the small bowel. The fascia was closed. The laparoscopic site fascia was closed with oboxkc-nl-revkz 0 Vicryl x2. The midline fascial incision below the umbilicus closed with ____ looped 0 PDS, [address] [address] OPERATIVE REPORT Name: EDUARDO MARIA Room #: 439-P [facility] IN .R.#: [id number] Admission: 04/29/21 Attend Phys: Wilbur Serrano MD Discharge: Date of : 45 Report #: [id number] started cephalad and then ended up tying to itself inferiorly. Skin was irrigated with saline and then closed with skin maggie, including the laparoscopic port sites. Band-Aids, 4 x 4, ABD, tape was applied. The patient was awakened and taken to recovery room. <ELECTRONICALLY SIGNED> By: Wilbur Serrano MD 05/01/21 1028 2115 2202 Wilbur Serrano MD /nt
--- NOTE | 2021-05-01 10:28 | H ---
[facility] [place] [address] [place] [address] HISTORY AND PHYSICAL Name: EDUARDO MARIA Room #: 439-P ADM IN M.R.#: [id number] Admission: 04/29/21 Attend Phys: Wilbur Serrano MD Discharge: Date of : 45 Report #: [id number] THIS REPORT FOR: cc: Charles Carpio MD,Wilbur Ledbetter MD, MD ~ cc: Arvind Carpio MD CHIEF COMPLAINT: Small-bowel obstruction, abdominal pain, nausea. HISTORY OF PRESENT ILLNESS: The patient is a 75-year-old, who is well known to me. She was in the emergency room on 04/01. She complained of abdominal pain. Her pain resolved while she was in the ER. Her pain was in the right mid abdomen and into the right flank and then even up to the right upper quadrant area. No vomiting. She did have nausea. Her CT scan from that showed dilated small bowel and pretty significantly dilated colon, possible gastroenteritis picture. I saw her in the office not long after that and she was found to have a right femoral hernia by Dr. Arvind Carpio. I confirmed that and she was actually tender there. She underwent repair of right femoral hernia fairly recently. Prior to that, she had a paraesophageal hiatal hernia repair. She did well with the surgery. She came in because of abdominal distention, nausea, and abdominal pain. Pain is in the lower part of the abdomen. She has a decreased stools. She was evaluated in the emergency room. White count was elevated at 15,000. Lactic acid was 2.5. Her creatinine was up at 2.0. She normally runs anywhere from 1 to 1.5. Liver function tests are normal. Her CT scan is consistent with a distal small-bowel obstruction, huge stomach. When I arrived to see her, the nurse just pulled out her NG, because it was down in her right bronchus. It was pretty small to. I went ahead and placed a 16-Upper Sorbian with some difficulty, but I was able to get it to go in. In the stomach, lots of air released, she felt better. She has been admitted for treatment. PAST MEDICAL HISTORY: Paraesophageal hiatal hernia, GERD, vomiting history, hypertension, parathyroid gland removal with a narrow low calcium and calcium replacement required, osteoporosis, chronic kidney disease. No bleeding disorder. No heart disease. No diabetes. No blood clot. MEDICATIONS: Hydrocodone, potassium, ferrous sulfate and then also calcium injections. ALLERGIES: SHE IS ALLERGIC TO TETRACYCLINE. SOCIAL HISTORY: The patient does use alcohol and she, previous to surgery, was a smoker. FAMILY HISTORY: Unremarkable. [address] [address] HISTORY AND PHYSICAL Name: EDUARDO MARIA Room #: 439-P [facility] IN M.R.#: [id number] Admission: 04/29/21 Attend Phys: Wilbur Serrano MD Discharge: Date of : 45 Report #: [id number] PHYSICAL EXAMINATION: GENERAL: The patient is a little distressed from just having her NG pulled out. She appears to be a little pale looking. HEENT: Pupils react to light. Extraocular muscles are intact. NECK: Soft and supple, no masses, no JVD. LUNGS: Clear to auscultation. HEART: Regular rate and rhythm. ABDOMEN: Shows a markedly distended, particularly tight right at the umbilical level. After the NG was placed, this was much softer. She still has distention in the lower part of the abdomen, but minimal tenderness. No guarding. No rigidity. Bowel sounds are decreased. EXTREMITIES: No cyanosis, clubbing, edema. ASSESSMENT AND PLAN: The patient is a 75-year-old who is known to me, just came to the emergency room with abdominal pain, marked distention. Most a CT scan and her history is consistent with a bowel obstruction. CT collaborates with a markedly distended stomach, which now has been decompressed by the NG tube that required a me placing. ER placed it and was down the right bronchus. The patient, at this point, does not have any evidence of strangulated or compromised bowel. She is quite dehydrated, will need IV rehydration. Pain medications ordered. We will admit. I think the episode in March may have been the same thing, i.e., bowel obstruction. She has had a hysterectomy and could be related to that. There is possibly could be related to some scarring in the femoral hernia and that has caused a bowel obstruction with adhesions. Her femoral hernia did not contain any bowel I could tell. The patient's daughter and son were present. I saw her in the emergency room. The plan of treatment was discussed. NG will be on suction with IV fluids ordered. ER gave a dose of antibiotics, but I do not think I need any antibiotics at this point. We will see how she does. <ELECTRONICALLY SIGNED> By: Wilbur Serrano MD 05/01/21 1028 1055 1111 Wilbur Serrano MD /nt
[2021-05-01 13:30] VITALS: BP 111/47
[2021-05-01 15:46] VITALS: BP 122/62
[2021-05-01 20:00] VITALS: BP 121/59
--- NOTE | 2021-05-02 02:00 | NUR ---
ASSESSED AT START OF SHIFT. PT RESTING IN BED. IV INTACT AND FLUIDS INFUSING. FENTALYN GIVEN FOR PAIN. ABD DRESSING C/D/I. NG TUBE IN RT NARES TO SUCTION. FALL PREC IN PLACE. NPO AND KORTNEY ICE CHIPS. CALL LIGHT AT REACH. WILL CONT TO MONITOR.
[2021-05-02 03:29] VITALS: BP 128/68
[2021-05-02 05:41] LABS: HEMATOCRIT 27.9 % (37.0-47.0); MCH 28.6 pg (26.0-34.0); MCHC 32.3 g/dL (28.0-37.0); MCV 88.6 fL (80.0-100.0); PLATELET COUNT 284 thou/uL (150-400); RBC 3.15 mil/uL (4.20-5.00); RDW 17.1 % (10.5-14.5); WBC 15.5 thou/uL (4.0-11.0)
[2021-05-02 06:06] LABS: ALBUMIN 2.1 g/dL (3.4-5.0); CALCIUM 7.8 mg/dL (8.5-10.1); POTASSIUM 3.8 mmol/L (3.5-5.1); TOTAL BILIRUBIN 0.3 mg/dL (0.2-1.0); TOTAL PROTEIN 5.6 g/dL (6.4-8.2)
[2021-05-02 06:59] LABS: ABSOLUTE NEUTROPHILS 14.3 thou/uL (1.4-8.2); ANISOCYTOSIS 1+; METAMYELOCYTES 1 %; MYELOCYTES 1 %
[2021-05-02 08:58] VITALS: BP 140/60
--- NOTE | 2021-05-02 10:33 | NUR ---
Assumed care of pt at 0700. Pt alert today and no longer confused. IV fluids and IV antibiotics infusing. Dressing c/d/i. SBA. Neal catheter in place. Pt has pulled BG tube overnight. Provider notified. Family at bedside. Call light within reach. Fall precautions in place.
--- NOTE | 2021-05-02 13:33 | NUR ---
ON-GOING ASSESSMENT: CM REVIEWED CHART. PT PULLED OUT HER NG OVER NIGHT AND IT WILL REMAIN OUT AT THIS TIME. PHYSICAL THERAPY HAS BEEN ORDERED TO WORK WITH PATIENT TODAY. CM WILL CONTINUE TO FOLLOW PENDING FURTHER RECOMMENDATIONS. PT IS NORMALLY FULLY INDEPENDENT AT HOME.
--- NOTE | 2021-05-02 13:34 | NUR ---
ON-GOING ASSESSMENT: CM REVIEWED CHART. PT PULLED OUT HER NG OVER NIGHT AND I WILL REMAIN OUT AT THIS TIME. PHYSICAL THERAPY HAS BEEN ORDERED TO WORK WITH PATIENT TODAY. CM WILL CONTINUE TO FOLLOW PENDING FURTHER RECOMMENDATIONS.
[2021-05-02 16:00] VITALS: BP 140/62
--- NOTE | 2021-05-02 17:07 | PATH ---
[facility] [address] [place] [address] PATHOLOGY RPT PROCEDURE Name: VERONICA FLORENCE Room #: 439-P ADM IN M.R.#: [id number] Admission: 04/29/21 Date of : 45 Discharge: Report #: [id number] Path Case #: [id number] [facility] Accession Number: [id number] . 01 Material submitted: . small bowel - SMALL BOWEL . 02 Diagnosis: Small bowel, resection: - Attenuated small bowel with ischemic changes, marked congestion, as well as extensive fibrous adhesion. - Marked serositis, compatible with the provided history of perforation. - Negative for dysplasia or malignancy. - One margin showing viable mucosa. - Opposite margin showing ischemic changes. (IUV:pit:db; 05/02/2021) QTP 05/02/2021 1525 Local . 02 Electronically signed: . Chantale Kurtz MD, Pathologist NPI- [id number] . 01 Gross description: . The specimen is received in formalin, labeled "Veronica Florence small bowel". Received is a serpiginous segment of small bowel measuring 82.9 cm in length and ranges in diameter from 1.1-3.7 cm. Both margins are stapled closed. The serosal surface is pale miller to dusky pink-vasquez in appearance. 18.8 cm from one margin, the specimen has twisted onto itself. There are also multiple areas of adhesion, as well is a perforation measuring 0.8 x 0.6 cm, which is 12.1 cm from the closest margin. The attached mesenteric fat measures up to 3.8 cm in thickness. The specimen is opened along the antimesenteric line to reveal light miller to red-brown mucosa with minimal to moderate architectural folds. No additional nodules or lesions are noted grossly. Sectioning through the attached mesenteric fat reveals no readily identifiable lymph nodes. The specimen is submitted representatively as follows: . A1 viable-appearing margin A2 grossly ischemic-appearing margin A3 entire area of perforation A4 parts representative sections through area of twisting A5-A6 parts representative sections through areas of adhesion A7-A8 parts representative sections of mucosa. (CAA; 05/01/2021) QA/QAC 05/02/2021 1522 Local . 02 Pathologist provided ICD-10: [address] [address] PATHOLOGY RPT PROCEDURE Name: VERONICA FLORENCE Room #: 439-P ADM IN M.R.#: [id number] Admission: 04/29/21 Date of : 45 Discharge: Report #: [id number] Path Case #: [id number] [id number] . 02 CPT . [id number] Specimen Comment: A courtesy copy of this report has been sent to [phone] Specimen Comment: Report sent to Performed at: [address], [place], [place] [id number] MD Franyk Oreilly MD Phone: [phone] Performed at: [address] [facility] [id number] MD Chantale Kurtz MD Phone: [phone]
[2021-05-02 19:16] VITALS: BP 146/54
--- NOTE | 2021-05-03 02:09 | NUR ---
ASSUMED CARE OF PT AT SHIFT CHANGE. PT WAS AOX1 UPON INITIAL ASSESSMENT. PT WAS AOX2-3 THE NIGHT PROGRESSED. PT LETS NEEDS BE KNOWN BUT CAN BE IMPULSIVE AT TIMES. FALL PRECAUTION IN PLACE. 2L O2 VIA NC CONTINUED. ABD DRESSING IS C/D/I. GAGNON IN PLACE AND PATIENT. PT REPORTED SOME ABD PAIN; PRNS PROVIDED. PT DENIED NAUSSEA. ASSESSMENT CHARTED. PT SLEPT PART OF THE SHIFT. VSS AND NO S/S OF ACUTE DISTRESS. WILL CONTINUE TO MONITOR.
[2021-05-03 02:52] LABS: ABSOLUTE NEUTROPHILS 17.7 thou/uL (1.4-8.2); BASOPHILS 0.1 % (0.0-2.0); EOSINOPHILS 0.5 % (0.0-3.0); HEMATOCRIT 27.2 % (37.0-47.0); HEMOGLOBIN 9.1 gm/dL (12.0-15.0); LYMPHOCYTES 3.3 % (24.0-44.0); MCHC 33.5 g/dL (28.0-37.0); MCV 86.7 fL (80.0-100.0); MONOCYTES 3.5 % (1.0-8.0); PLATELET COUNT 270 thou/uL (150-400); POLYS 92.6 % (36.0-66.0); RBC 3.14 mil/uL (4.20-5.00); RDW 16.8 % (10.5-14.5); WBC 19.2 thou/uL (4.0-11.0)
[2021-05-03 03:40] LABS: ALBUMIN 1.9 g/dL (3.4-5.0); CREATININE 1.7 mg/dL (0.6-1.0); PHOSPHORUS 2.9 mg/dL (2.5-4.9); POTASSIUM 3.3 mmol/L (3.5-5.1); TOTAL BILIRUBIN 0.3 mg/dL (0.2-1.0); TOTAL PROTEIN 5.4 g/dL (6.4-8.2)
[2021-05-03 04:23] VITALS: BP 137/71
[2021-05-03 08:32] VITALS: BP 145/76
--- NOTE | 2021-05-03 11:14 | NUR ---
ASSUMED PT CARE THIS AM. PT IS ALERT & ORIENTED X3 AND FORGETFUL AT TIMES. PT HAS IV SITE ON R WRIST. REMOVED GAGNON THIS AM. PT IS NPO AND HAS BEEN GIVING ICE CHIPS. INFUSING IV POTASSIUM CHLORIDE DUE TO LOW POTASSIUM PROTOCOL. PT WAS WORKING WITH OCCUPATIONAL AND PHYSICAL THERAPY THIS AM. PT FAMILY WAS AT THE BEDSIDE. NO C/O OF NAUSEA AND VOMITING. PT IS ON THE CHAIR WITH ALARM ON AND CALL LIGHT WITHIN REACH. WILL CONTINUE TO MONITOR PT. FOLLOW POC.
--- NOTE | 2021-05-03 12:53 | NUR ---
ON-GOING ASSESSMENT: CM REVIEWED CHART AND SPOKE WITH ATTENDING WELL PATIENT. PER ATTENDING PT HAS SOME PERITONITIS. PT IS CONTINUING TO WORK WITH THERAPY AND THEY ARE RECOMMENDING HOME HEALTH. 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 CM WILL CONTINUE TO FOLLOW TO ASSIST NEEDED.
[2021-05-03 16:28] VITALS: BP 156/66
[2021-05-03 20:47] VITALS: BP 150/65
[2021-05-04 00:39] VITALS: BP 140/68
--- NOTE | 2021-05-04 02:06 | NUR ---
ASSESSED AT START OF SHIFT. PT RESTING IN BED. DENIES PAIN N/V. IV INTACT AND FLUIDS INFUSING. PT NPO WITH ICE CHIPS ONLY. UP WITH SBA TO THE BATHROOM. SCD'S IN PLACE. FALL PREC MAINTAINED. WILL CONT WITH POC TILL EOS.
[2021-05-04 02:35] LABS: HEMOGLOBIN 8.2 gm/dL (12.0-15.0); MCH 28.6 pg (26.0-34.0); MCHC 32.8 g/dL (28.0-37.0); MCV 87.3 fL (80.0-100.0); PLATELET COUNT 260 thou/uL (150-400); RBC 2.86 mil/uL (4.20-5.00); RDW 16.4 % (10.5-14.5); WBC 15.6 thou/uL (4.0-11.0)
[2021-05-04 03:08] LABS: ALBUMIN 1.7 g/dL (3.4-5.0); CALCIUM 7.7 mg/dL (8.5-10.1); CREATININE 1.5 mg/dL (0.6-1.0); POTASSIUM 3.1 mmol/L (3.5-5.1); TOTAL BILIRUBIN 0.4 mg/dL (0.2-1.0)
[2021-05-04 03:40] VITALS: BP 160/59
[2021-05-04 05:14] LABS: ABSOLUTE NEUTROPHILS 13.1 thou/uL (1.4-8.2)
[2021-05-04 05:15] LABS: ANISOCYTOSIS 1+; PLATELET ESTIMATE NORMAL; POIKILOCYTOSIS 1+
[2021-05-04 07:20] VITALS: BP 146/72
--- NOTE | 2021-05-04 13:32 | NUR ---
ASSUMED PT CARE THIS AM. PT IS ALERT & ORIENTED X3 BUT FORGETFUL AT TIMES. ADVANCED DIET TO CLEAR LIQUID PER DR THAKKAR. PT HAD BM TODAY. HANG IV POTASSIUM DUE TO POTASSIUM WAS LOW THIS AM. POTASSIUM NOW IS 3.9. NO C/O OF PAIN, NAUSEA AND VOMITING DURING THE SHIFT. PT IS ON ROOM AIR. PT IS UP WITH ASSIST X1 WITH WALKER AND GAITBELT. PT ON THE BED, BED ON THE LOWEST POSITION, SIDE RAILS UP, CALL LIGHT WITHIN REACH. WILL CONTINUE TO MONITOR PT. FOLLOW POC.
--- NOTE | 2021-05-04 14:06 | NUR ---
ON-GOING ASSESSMENT: cM REVIEWED CHART AND SPOKE WITH ATTENDING. PT IS SLOWLY PROGRESSING TOWARDS DISCHARGE GOALS. PTS WBC STILL ELEVATED BUT IS IMPROVING, PT REMAINS ON IV ANBX. PER RECORDS KCL BEING REPLACED. 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 CM WILL CONTINUE TO FOLLOW TO ASSIST NEEDED.
[2021-05-04 16:00] VITALS: BP 138/55
[2021-05-04 20:15] VITALS: BP 165/70
--- NOTE | 2021-05-05 02:39 | NUR ---
ASSESSED AT START OF SHIFT. PT A&OX3. PULLED OUT IV. NEW IV 22 G INSERTED ON RT FA AFTERX2 ATTEMPT. PT UP WITH ASSISTX1 TO THE BSC. HAD A BM THIS SHIFT. ABD ROLANDO INTACT. FALL PREC IN PLACE. PT ON 2L OVER NIGHT WILL CONT TO MONITOR.
[2021-05-05 03:52] LABS: HEMATOCRIT 24.2 % (37.0-47.0); MCH 28.5 pg (26.0-34.0); MCHC 33.1 g/dL (28.0-37.0); RBC 2.81 mil/uL (4.20-5.00); RDW 16.2 % (10.5-14.5); WBC 10.8 thou/uL (4.0-11.0)
[2021-05-05 03:59] LABS: CALCIUM 7.8 mg/dL (8.5-10.1); CREATININE 1.1 mg/dL (0.6-1.0)
[2021-05-05 04:26] LABS: POTASSIUM 2.7 mmol/L (3.5-5.1)
[2021-05-05 04:45] VITALS: BP 147/61
[2021-05-05 07:35] VITALS: BP 149/63
--- NOTE | 2021-05-05 09:21 | NUR ---
ASSUMED PT CARE THIS AM. NOTED CRITICAL LOW POTASSIUM THIS AM. INFUSED 2ND DOSE OF KCL THIS AM. ORDERED POTASSIUM LAB THIS AM. AWAITING FOR THE RESULTS. PT TOLERATED CLEAR LIQUID DIET. NO C/O OF PAIN, NAUSEA AND VOMITING. PT BEEN VOIDING AND HAD 2 LIQUID STOOL THIS AM. PT HAS 2L NC O2 PER RT. PT IS UP WITH ASSIST X1 WITH GAITBELT AND WALKER TO BEDSIDE COMMODE. WILL CONTINUE TO MONITOR PT. FOLLOW POC.
[2021-05-05 11:03] LABS: MAGNESIUM 1.2 mg/dL (1.8-2.4); POTASSIUM 3.1 mmol/L (3.5-5.1)
--- NOTE | 2021-05-05 16:04 | NUR ---
ON-GOIING ASSESSMENT: CM REVIEWED CHART. PHYSICAL THERAPY IS RECOMMENDING POST ACUTE CARE STAY. 5N CONSULT WAS PLACED. CM MET WITH PATIENT WHO REPORTS THAT SHE IS NOT INTERESTED IN GOING TO POST ACUTE CARE STAY. 5N LIASON STATING THAT SHE IS RECOMMENDING HOME WITH HH BUT 5N CONSULT WAS CANCELED PT IS NOT INTERSTED. CM MET WITH PATIENT TO DISCUSS HH. PT REPORTS THAT HER DAUGHTER IS GOING TO STAY WITH HER A FEW HOURS A DAY AND HELP NEEDED AND SHE REALLY DOES NOT WISH TO HAVE HOME HEALTH AT THIS TIME. CM NOTIFIED ATTENDING. PLANS TO DISCHARGE HOME WITH FAMILY ASSIST. PT REPORTS HAVING NEEDED DME AT HOME.
[2021-05-05 16:15] VITALS: BP 166/67
[2021-05-05 20:03] VITALS: BP 151/61
--- NOTE | 2021-05-06 05:50 | NUR ---
Pt. rested quietly at intervals during the night when checked on during frequent rounds. She c/o abdominal pain and po pain meds given (see emar) with some relief. Low grade temp and pt. encouraged to use the insentive spirometer. Up to the comode with standby assistance. Bed alarm is on.
[2021-05-06 06:47] LABS: HEMATOCRIT 28.4 % (37.0-47.0); HEMOGLOBIN 9.3 gm/dL (12.0-15.0); MCH 28.2 pg (26.0-34.0); MCHC 32.7 g/dL (28.0-37.0); MCV 86.2 fL (80.0-100.0); RBC 3.29 mil/uL (4.20-5.00); RDW 16.2 % (10.5-14.5); WBC 12.5 thou/uL (4.0-11.0)
[2021-05-06 07:27] LABS: CALCIUM 8.2 mg/dL (8.5-10.1); CREATININE 1.1 mg/dL (0.6-1.0)
[2021-05-06 07:30] LABS: POTASSIUM 2.5 mmol/L (3.5-5.1)
[2021-05-06 08:13] VITALS: BP 148/60
[2021-05-06 08:22] VITALS: BP 113/68
--- NOTE | 2021-05-06 08:35 | NUR ---
RN WAS NOTIFIED BY XANDER COSBY 2.5K AT 0729. RN NOTIFIED DR. HUERTAS AT 0742 CONTINUING K+ PROTOCOL.
--- NOTE | 2021-05-06 16:55 | NUR ---
PATEINT ALERT AND ORINTED X4, ON ROOM AIR WEANED OFF O2, UP WITH SBA, VITAL SIGNS STABLE, AND AFBRILE. CALL LIGHT WITH IN REACH, WILL CONTINUE TO MONITOR.
[2021-05-06 19:14] VITALS: BP 139/62
--- NOTE | 2021-05-07 02:07 | NUR ---
ASSESSED AT START OF SHIFT. PT RESTING IN BED. A&OX4 C/O ABD PAIN HYDROCODONE GIVEN. PT UP WITH ASSISTX1 TO THE BSC. CRITICAL K+ 2.7 ONCALL DRIVABILITY TECHNICIAN NOTIFIED AND IV POTASSIUM STARTED IV ROUTE WENT BAD AND BURNING AND STARTED TO LEAK. PT ABLE TO KORTNEY PO PILL ONE AT A TIME SWICHED k+ TO PO PILL. PT HAD 3 WATERY STOOL. FALL PREC IN PLACE AND CALL LIGHT AT REACH. ICE PACK PLACE ON LEFT ARM DUE TO SWELLING FROM LAB DRAW. WILL CONT TO MONITOR.
[2021-05-07 04:30] VITALS: BP 127/62
[2021-05-07 08:08] VITALS: BP 143/68
[2021-05-07 09:09] LABS: ALBUMIN 1.7 g/dL (3.4-5.0); CALCIUM 7.8 mg/dL (8.5-10.1); CREATININE 0.8 mg/dL (0.6-1.0); TOTAL BILIRUBIN 0.4 mg/dL (0.2-1.0); TOTAL PROTEIN 4.8 g/dL (6.4-8.2)
[2021-05-07 09:11] LABS: POTASSIUM 4.1 mmol/L (3.5-5.1)
[2021-05-07 15:25] VITALS: BP 141/68
[2021-05-07 20:50] VITALS: BP 149/81
--- NOTE | 2021-05-08 03:22 | NUR ---
ASSESSED AT START OF SHIFT. PT RESTING IN BED. HYDROCODONE GIVEN FOR ABD PAIN. UP WITH SBA TO THE BATHROOM. MIDLINE INCISION INTACT WITH ROLANDO. FALL PREC MAINTAINED WILL CONT WITH POC TILL EOS.
[2021-05-08 04:10] VITALS: BP 123/61
[2021-05-08 07:30] VITALS: BP 122/65
[2021-05-08 07:35] VITALS: BP 130/83
--- NOTE | 2021-05-08 11:30 | NUR ---
left message with her daughter amber rt possible dc home today with hh nurse. Amber called cm back, stated yes we talked yesterday and home health nurse and help with bathing just for bit will be helpful. Any hh ok, per daughter amber. [facility] if [facility] cant take her [facility].
[2021-05-08 12:06] VITALS: BP 130/83
--- NOTE | 2021-05-08 12:23 | NUR ---
FAXED REFERRAL TO [facility]. WILL CONFIRM THEY RECEIVED AND CAN ACCEPT. [facility] P [phone]; FAX [phone]
[2021-05-08] MEDS ORDERED: HYDROCODON-ACE1 EAC7 PO (12:50)
[2021-05-08] MEDS ORDERED: GAS-X125 MG PO (12:50)
[2021-05-08 13:09] VITALS: BP 130/83
[2021-05-08 15:08] VITALS: BP 130/83
--- NOTE | 2021-05-08 17:46 | NUR ---
RN WENT OVER ALL DISCHARGE AND ALL QUESTIONS ANSWERED, IV OUT, AND WHEELED OUT IN WHEELCHAIR TO HOME
== END 2021-05-08 17:00 | disposition home health service (06) | DRG 853 ==
LOC: ER 09:31 → 4S 11:51 → EROBS 11:51 → 4W 11:51 → 4S 21:05
PROVIDERS: Emergency Medicine; Hospitalist; ADMIT Surgery; ATTEND Surgery
PROC: 0D9670Z Drainage of Stomach with Drainage Device, Via Natural or Artificial Opening (ICD-10-PCS; principal; 2021-04-29)
PROC: 0DB80ZZ Excision of Small Intestine, Open Approach (ICD-10-PCS; 2021-04-30)
DX: A41.9 Sepsis, unspecified organism (principal); E43 Unspecified severe protein-calorie malnutrition; N17.0 Acute kidney failure with tubular necrosis; K56.2 Volvulus; K56.609 Unspecified intestinal obstruction, unspecified as to partial versus complete obstruction; K55.9 Vascular disorder of intestine, unspecified; G93.40 Encephalopathy, unspecified; K21.9 Gastro-esophageal reflux disease without esophagitis; E78.00 Pure hypercholesterolemia, unspecified; E83.42 Hypomagnesemia; I12.9 Hypertensive chronic kidney disease with stage 1 through stage 4 chronic kidney disease, or unspecified chronic kidney disease; M81.0 Age-related osteoporosis without current pathological fracture; K46.9 Unspecified abdominal hernia without obstruction or gangrene; I95.9 Hypotension, unspecified; E78.5 Hyperlipidemia, unspecified; F32.9 Major depressive disorder, single episode, unspecified; N18.30 Chronic kidney disease, stage 3 unspecified; E87.6 Hypokalemia; Z20.822 Contact with and (suspected) exposure to COVID-19; Z96.643 Presence of artificial hip joint, bilateral; Z96.652 Presence of left artificial knee joint; Z85.828 Personal history of other malignant neoplasm of skin; Z98.42 Cataract extraction status, left eye; Z98.41 Cataract extraction status, right eye; Z90.710 Acquired absence of both cervix and uterus; Z79.82 Long term (current) use of aspirin; Z79.899 Other long term (current) drug therapy; Z88.1 Allergy status to other antibiotic agents; Z87.891 Personal history of nicotine dependence; Z53.31 Laparoscopic surgical procedure converted to open procedure; Z68.21 Body mass index [BMI] 21.0-21.9, adult
CPT/HCPCS: 10195; 50101; 50411; 50455; 50555; 50558; 51390; 51391; 51412; 51435; 51489; 52265; 53307; 53310; 56462; 56524; 56525; 56526; 56527; 58574; 62110; 62900; 70005